=== PATIENT | female | born 1990 ===

== ENCOUNTER 2018-12-02 10:15 | Emergency (ER) | payer SELFPAY ==
--- NOTE | 2018-12-02 10:55 | UC ---
Skin Complaint HPI - HPI Summary HPI Summary: 28-year-old woman comes in with chief complaint of a rash. Started about a week ago. Initially noticed it on her ankles and then she also has some around her belt line. It does itch. Her boyfriend was diagnosed with scabies and he was treated 5 days ago with a cream. He improved after the cream. However now he starting to get the rash back again and he went saw his doctor today and got represcribed the cream. Feels well otherwise. - History of Current Complaint Chief Complaint: UCRash Time Seen by Provider: 12/02/18 10:48 Stated Complaint: SKIN COMPLAINT Hx Last Menstrual Period: 11/06/18 Pain Intensity: 0 - Allergy/Home Medications Allergies/Adverse Reactions: Allergies Allergy/AdvReac Type Severity Reaction Status Date / Time No Known Allergies Allergy Verified 12/02/18 10:37 Home Medications: Home Medications Levothyroxine TAB* [Synthroid TAB*] 100 mcg PO DAILY 12/02/18 [History Confirmed 12/02/18] PMH/Surg Hx/FS Hx/Imm Hx Previously Healthy: Yes Endocrine History: Hypothyroidism - Surgical History Surgical History: Yes Surgery Procedure, Year, and Place: thyroidectomy - Family History Known Family History: Positive: Non-Contributory - Social History Alcohol Use: None Substance Use Type: None Smoking Status (MU): Never Smoked Tobacco Review of Systems All Other Systems Reviewed And Are Negative: Yes Constitutional: Positive: Negative Skin: Positive: Other - SEE HPI Eyes: Positive: Negative ENT: Positive: Negative Respiratory: Positive: Negative Cardiovascular: Positive: Negative Gastrointestinal: Positive: Negative Motor: Positive: Negative Neurovascular: Positive: Negative Musculoskeletal: Positive: Negative Neurological: Positive: Negative Psychological: Positive: Negative Is Patient Immunocompromised?: No Physical Exam Triage Information Reviewed: Yes Appearance: Well-Appearing, No Pain Distress, Well-Nourished Vital Signs: Initial Vital Signs Temp 98.3 F 12/02/18 10:39 Pulse 66 12/02/18 10:39 Resp 16 12/02/18 10:39 BP 103/67 12/02/18 10:39 Pulse Ox 98 12/02/18 10:39 Vital Signs Reviewed: Yes Eye Exam: Normal Eyes: Positive: Conjunctiva Clear Neck: Positive: Supple Respiratory: Positive: No respiratory distress Musculoskeletal: Positive: Strength Intact, ROM Intact Neurological: Positive: Alert, Muscle Tone Normal Psychological: Positive: Age Appropriate Behavior Skin: Positive: Other - Around the patient's ankles she has a rash slightly raised with 2-3 mm areas of erythema. Is no rash on her hands. Patient reports same rash on her belt line on her back. She also has some rash on the anterior aspect of her abdomen at the belt line. Course/Dx - Course Course Of Treatment: The distribution of the rash is not completely typical of scabies in that the hands are noninvolved. We'll treat as scabies at this time especially since she reports that her boyfriend did improve after being treated with a cream which I'm presuming is Elimite. Patient's he reevaluated if not improved or worse. - Diagnoses Provider Diagnosis: Rash Discharge - Sign-Out/Discharge Documenting (check all that apply): Patient Departure All imaging exams completed and their final reports reviewed: No Studies - Discharge Plan Condition: Stable Disposition: HOME Prescriptions: Permethrin [Elimite] 30 gm TOPICAL ONCE #60 gm Patient Education Materials: Scabies (ED), Acute Rash (ED) Referrals: [facility] [place] [facility] [Outside] Additional Instructions: FOLLOW UP WITH YOUR DOCTOR IF NOT COMPLETELY IMPROVED. GET RECHECKED SOONER IF YOUR CONDITION WORSENS OR ANY QUESTIONS OR CONCERNS. - Billing Disposition and Condition Condition: STABLE Disposition: Home
== END 2018-12-02 11:05 | disposition home or self-care (01) ==
LOC: UCEAST 10:15
DX: R21 Rash and other nonspecific skin eruption (principal); E89.0 Postprocedural hypothyroidism
CPT/HCPCS: 99202; G0463